=== PATIENT | male | born 1950 | race Caucasian/White ===

== ENCOUNTER 2022-01-28 09:19 | Emergency (ER) | payer MEDICARE ==
[~2022-01-28] VITALS: Ht 172.7 cm; Wt 84.1 kg
[~2022-01-28 09:19] MED LIST: CIPRO 500MG TA500 MG PO; FLOMAX 0.40.4 MG/CAP PO; NO HOME MEDICATIONS
[2022-01-28 09:26] VITALS: TEMP 98.1
[2022-01-28 10:18] LABS: PROTHROMBIN TIME 11.6 SECONDS (9.7-12.8)
[2022-01-28 10:20] LABS: BASO % 0.6 % (0.0-2.0); EOS # 0.2 K/mm3 (0.0-0.7); EOS % 2.1 % (0.0-4.0); GRAN # 5.2 K/mm3 (1.4-6.5); GRAN % 73.5 % (42.2-75.2); HEMATOCRIT 46.5 % (42.0-52.0); HEMOGLOBIN 15.5 g/dl (13.5-18.0); LYMPH # 1.1 K/mm3 (1.2-3.4); LYMPH % 15.9 % (20.0-51.0); MEAN CELL VOLUME 94 fl (80.0-100.0); MEAN CORPUSCULAR HEMOGLOBIN 31 pg (27-31); MEAN CORPUSCULAR HGB CONC 33 g/dl (33.0-37.0); MEAN PLATELET VOLUME 10.2 fl (7.4-10.4); MONO # 0.5 K/mm3 (0.1-0.6); MONO % 7.6 % (1.7-9.3); PLATELET COUNT 229 K/mm3 (130-400); RED BLOOD COUNT 4.97 M/mm3 (4.20-5.60); REDCELL DISTRIBUTION WIDTH-CV 12.9 % (11.5-14.5)
[2022-01-28 10:21] LABS: PARTIAL THROMBOPLASTIN TIME 37.6 SECONDS (26.0-37.0)
[2022-01-28 10:32] LABS: ALBUMIN 3.7 gm/dL (3.4-4.8); BILIRUBIN,TOTAL 0.9 mg/dL (0.2-1.2); CALCIUM 9.1 mg/dL (8.4-10.2); CREATININE, serum 0.78 mg/dL (0.72-1.25); POTASSIUM 3.7 mmol/L (3.5-4.5); TOTAL PROTEIN 6.9 gm/dL (6.2-8.1)
[2022-01-28 10:38] LABS: TROPONIN-I 0.022 ng/mL (0.00-0.033)
[2022-01-28] MEDS ORDERED: ASPIRIN 32325 MG/TAB PO (11:41)
[2022-01-28] MEDS ORDERED: ZESTRIL 10MG10 MG PO (11:41)
[2022-01-28 12:01] VITALS: BP 156/104; PULSE 61
== END 2022-01-28 12:06 | disposition home or self-care (01) ==
LOC: COL.ER 09:19
PROVIDERS: Emergency Medicine
DX: M62.81 Muscle weakness (generalized) (principal); I10 Essential (primary) hypertension; R42 Dizziness and giddiness
CPT/HCPCS: Q9967

== ENCOUNTER → 2022-02-09 | Outpatient (CLI) | payer MEDICARE ==
[~2022-02-09] MED LIST changes: +ASPIRIN 32325 MG/TAB PO; +ZESTRIL 10MG10 MG PO
== END ==
LOC: COL.VAS 12:47
DX: I08.0 Rheumatic disorders of both mitral and aortic valves (principal); G45.9 Transient cerebral ischemic attack, unspecified